=== PATIENT | male | born 1940 | race Caucasian/White ===

== ENCOUNTER 2018-09-03 08:00 | Inpatient (IN) | payer MEDICARE ==
[2018-09-10] MEDS ORDERED: Bupivacaine HCl 0.5%/Epinephrine 1:200,000/PF 30 ml Vial ONE (09:41)
[2018-09-10] MEDS ORDERED: Midazolam HCl 2 mg/2 ml Vial ONE (10:18)
[2018-09-10] MEDS ORDERED: Dexamethasone 4 mg/ml Vial ONE (10:18)
[2018-09-10] MEDS ORDERED: Fentanyl 100 MCG/2 ML VIAL ONE ×4 (10:18→15:14)
[2018-09-10] MEDS ORDERED: Glycopyrrolate 0.2 MG/ML 5 ML SYRINGE ONE (10:21)
[2018-09-10] MEDS ORDERED: Dexamethasone 20 MG/5 ML VIAL ONE (10:21)
[2018-09-10] MEDS ORDERED: Lidocaine 1% PF 5 ML VIAL ONE (10:21)
[2018-09-10] MEDS ORDERED: PROPOFOL 200 MG/20 ML VIAL ONE (10:21)
[2018-09-10] MEDS ORDERED: Ondansetron PF 4 MG/2 ML Vial ONE (10:21)
[2018-09-10] MEDS ORDERED: Bupivacaine/Epinephrine 0.25% 30 ML VIAL ONE (10:43)
[2018-09-10] MEDS ORDERED: cefOXitin 2 GM in Sodium Chloride 0.9% 100 ML IVPB SCH (10:45)
[2018-09-10] MEDS ORDERED: Ondansetron HCl/PF 4 MG/2 ML Vial IVP PRN (12:50)
[2018-09-10] MEDS ORDERED: Promethazine HCl 25 MG/ML VIAL SLOW IVP PRN (12:50)
[2018-09-10] MEDS ORDERED: Promethazine HCl 25 MG/ML VIAL IM PRN ×2 (12:50→18:38)
[2018-09-10] MEDS ORDERED: cefOXitin 2 GM VIAL ONE (13:07)
[2018-09-10] MEDS ORDERED: hydrALAZINE 20 MG/ML VIAL SLOW IVP PRN (18:38)
[2018-09-10] MEDS ORDERED: Ondansetron PF 4 MG/2 ML Vial IVP PRN (18:38)
[2018-09-10 18:52] VITALS: BMI 27.8
[2018-09-10] MEDS: Acetaminophen 1,000 MG in Premix Bag 1 BAG IVPB SCH (19:25)
[2018-09-10] MEDS: D5 1/2 NS w/20 mEq KCL 1,000 ML IV SCH (19:25)
[2018-09-10] MEDS: Famotidine 20 MG TAB PO SCH (21:32)
[2018-09-10] MEDS: cefOXitin 2 GM in Sodium Chloride 0.9% 100 ML IVPB SCH (21:33)
[2018-09-10] MEDS: Famotidine/PF 20 mg/2ml Vial SLOW IVP SCH (23:05)
[2018-09-11] MEDS: Acetaminophen 1,000 MG in Premix Bag 1 BAG IVPB SCH ×3 (01:33→14:27)
[2018-09-11 05:52] LABS: #Lymphocytes 0.8 thou/uL (1.20-3.40); #Neutrophils 9.2 thou/uL (1.40-6.50); %Basophils 0.1 % (0.0-1.0); %Lymphocytes 6.9 % (21.0-51.0); %Monocytes 9.1 % (0.0-10.0); Hemoglobin 14.6 g/dL (14.0-18.0); Mean Corpuscular Hemoglobin 29.4 pg (27.0-31.0); Mean Platelet Volume 7.6 fL (7.4-10.4); Platelet Count 229 thou/uL (130-400); Red Blood Cell (RBC) Count 4.96 mill/uL (4.70-6.10)
[2018-09-11] MEDS: D5 1/2 NS w/20 mEq KCL 1,000 ML IV SCH ×3 (05:56→18:57)
[2018-09-11] MEDS: cefOXitin 2 GM in Sodium Chloride 0.9% 100 ML IVPB SCH (05:56)
[2018-09-11 06:12] LABS: Anion Gap 11 mmol/L (10-20); BUN (Urea Nitrogen) 11 mg/dL (8.4-25.7); Calc. Creatinine Clearance 91 mL/min (70-130); Calcium 8.8 mg/dL (7.8-10.44); Carbon Dioxide 25 mmol/L (23-31); Chloride 105 mmol/L (98-107); Estimated GFR-MDRD 86; Glucose 163 mg/dL (83-110); Potassium 3.8 mmol/L (3.5-5.1); Sodium 137 mmol/L (136-145)
[2018-09-11] MEDS ORDERED: Fentanyl 100 MCG/2 ML VIAL SLOW IVP PRN (07:21)
--- NOTE | 2018-09-11 07:36 | OP ---
DATE OF SERVICE: 09/10/2018. PREOPERATIVE DIAGNOSIS: Unresectable polyp, sigmoid colon. POSTOPERATIVE DIAGNOSIS: Unresectable polyp, sigmoid colon. PROCEDURE PERFORMED: Laparoscopic converted to open, left colectomy, splenic flexure mobilization, l ow pelvic anastomosis. SURGEON: Dr. Sanches. ANESTHESIA: General. ESTIMATED BLOOD LOSS: 200 mL COMPLICATIONS: None. FINDINGS: No air leak test at the end of the procedure. TECHNIQUE: The patient was taken to the operating room and placed supine on the table. After genera l anesthetic was obtained, the Andrew was placed. The patient had been placed in lithotomy position. His abdomen was shaved, prepped, and draped in a sterile fashion. Left subcostal 5-mm Optiview troc ar was placed in the usual fashion. High flow pneumoperitoneum was obtained. Right lower quadrant 1 2 mm port, right of umbilicus 5 mm port, suprapubic 5 mm port were all placed under direct visualizat ion. The small bowel was taken out of the pelvis. The patient was placed in Trendelenburg position. The mesentery for the sigmoid colon is mobilized in a medial to lateral fashion. The polypoid area that is tattooed blue is in the distal descending colon, upper sigmoid colon. Dissection is taken d own on the medial aspect of the peritoneum all the way to the top of the rectum. Dissection was take n through the mesentery exposing the ureter. The ureter was found and excluded from the dissection. Inferior mesenteric artery was taken using the LigaSure. There was no bleeding. Laparoscopic stapl er was fired across the upper rectum. The colon was flipped up and the splenic flexure mobilization performed. In the upper descending colon, the patient had a significant amount of omental fat. 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 His distal transverse colon and splenic fl exure was then completely encased in fat and there was omentum that was fused to the spleen as well. There were no tissue planes to dissect. Decision was made to open. Midline incision is made. Book denice retractor was placed. Splenic flexure was then mobilized in the usual fashion using the impac t LigaSure. This was very difficult given the amount of fat and adhesions in the upper abdomen of un certain etiology; however, ultimately it was able to be done. The mesenteric attachments at the sple edinson flexure had to be taken. The distal transverse colon was viable and in this location, a colotomy was made and the anvil for the 31 EEA passed proximally, its sharp pin brought out on the antimesent hua surface of the colon. Just distal to this, the colon was stapled off. The colon was opened on the back table to reveal the large polyp to be in the specimen, sent to path for final diagnosis. Th e upper colon was able to be brought down in the pelvis under no tension. The base for the EEA is br ought out through the rectum below and connected to the anvil from above and the colon is tightened d own into the green zone and fired. There were 2 good rings of tissue. The abdomen is irrigated. Th e lower abdomen is filled with saline and an air insufflation test is performed with a rigid proctosc ope without leak. All instrument counts, needle counts, lap counts were correct. There was no bleed ing. Midline fascia was closed using #1 PDS from the top and the bottom and tied in the middle. Sub cutaneous tissues were irrigated using sterile solution. Midline incision was closed using 3-0 Vicry l, 4-0 Monocryl, and Dermabond. All the other incisions were closed using 4-0 Monocryl and Dermabond . The patient was en route to recovery in stable condition. All instrument counts, needle counts, l ap counts were correct.
[2018-09-11] MEDS: Finasteride 5 MG TAB PO SCH (08:57)
[2018-09-11] MEDS: Amlodipine 10 MG TAB PO SCH (08:58)
[2018-09-11] MEDS: Famotidine 20 MG TAB PO SCH ×2 (08:58→22:03)
[2018-09-11] MEDS: Fentanyl 100 MCG/2 ML VIAL SLOW IVP PRN ×5 (09:06→21:12)
[2018-09-11] MEDS: Famotidine/PF 20 mg/2ml Vial SLOW IVP SCH ×2 (09:13→22:03)
--- NOTE | 2018-09-11 09:47 | PRG ---
DATE OF SERVICE: 09/11/2018 Postop day #1. Mr. Denise is doing well. He is tolerating the clear liquids. He has pain. He took his fentanyl thi s morning. He is ambulatory. PHYSICAL EXAMINATION: VITAL SIGNS: He is afebrile. Vital signs are stable. ABDOMEN: Soft, minimally distended. Wounds are healing well. LABORATORY DATA: White blood cell count 11, hemoglobin is 14, creatinine 0.86. ASSESSMENT: Postop day #1 left colectomy necessitating open incision due to significant intra-abdomi nal adhesions. PLAN: We will recheck this afternoon. He does want to go home today. I think it would be better if he stayed until tomorrow.
[2018-09-11] MEDS ORDERED: HYDROcodone/Acetaminophen 7.5/325 mg Tablet PO PRN ×2 (11:22→11:23)
[2018-09-11] MEDS: Enoxaparin Sodium 40 MG/0.4 ML SYRINGE SC SCH (12:06)
[2018-09-12] MEDS: Fentanyl 100 MCG/2 ML VIAL SLOW IVP PRN (07:23)
[2018-09-12] MEDS: Famotidine 20 MG TAB PO SCH ×2 (08:23→20:41)
[2018-09-12] MEDS: Famotidine/PF 20 mg/2ml Vial SLOW IVP SCH (08:23)
[2018-09-12] MEDS: Amlodipine 10 MG TAB PO SCH (08:23)
[2018-09-12] MEDS: Finasteride 5 MG TAB PO SCH (08:23)
[2018-09-12] MEDS: Enoxaparin Sodium 40 MG/0.4 ML SYRINGE SC SCH (08:25)
[2018-09-12] MEDS ORDERED: Acetaminophen 500 MG TAB PO SCH (10:45)
[2018-09-12] MEDS ORDERED: traMADol HCl 50 MG TAB PO PRN (10:46)
[2018-09-12] MEDS ORDERED: traMADol HCl 50 MG TAB PO SCH (11:00)
[2018-09-12] MEDS: HYDROcodone/Acetaminophen 7.5/325 mg Tablet PO SCH ×2 (12:15→17:56)
[2018-09-12] MEDS: HYDROcodone/Acetaminophen 7.5/325 mg Tablet PO PRN ×2 (14:07→18:45)
--- NOTE | 2018-09-12 17:32 | PRG ---
DATE OF SERVICE: 09/12/2018 SUBJECTIVE: Mr. Denise is a 77-year-old man who is postoperative day #2, status post left colectomy w ith primary anastomosis. He reports adequate pain control today. He is passing a little flatus, but no bowel movement. He tolerates a liquid diet. He denies any nausea or vomiting. OBJECTIVE: VITAL SIGNS: This morning includes blood pressure 136/62, pulse 78, respiratory rate is 18, temperat ure 98.9 degrees Fahrenheit, oxygen saturation 98% on room air. HEENT: Pupils equal, round, and reactive to light and accommodation. HEART: Reveals regular rate and rhythm, no murmurs or gallops auscultated. CHEST: Clear to auscultation bilaterally. His breathing is regular and unlabored. ABDOMEN: Soft. Incision is intact, clean, and dry. He has no peritoneal signs on examination. He, however, complains of abdominal wall pain when he tries to get out of bed. Once he is up in the chilango ir, the pain eases. IMPRESSION: Postoperative day #2 status post left colectomy with primary anastomosis. The patient i s hemodynamically stable. PLAN: 1. Convert oral pain management to p.o. regimen. 2. Anticipate discharge in the morning if adequate pain control has been established. The patient c ontinues to tolerate diet with no sign of infection. The above findings and plan discussed with the patient who indicates understanding of the information given. I have answered his questions.
[2018-09-13] MEDS: HYDROcodone/Acetaminophen 7.5/325 mg Tablet PO SCH ×2 (00:09→06:42)
[2018-09-13] MEDS: HYDROcodone/Acetaminophen 7.5/325 mg Tablet PO PRN (00:55)
[2018-09-13] MEDS: Amlodipine 10 MG TAB PO SCH (08:16)
[2018-09-13] MEDS: Finasteride 5 MG TAB PO SCH (08:17)
[2018-09-13] MEDS: Famotidine 20 MG TAB PO SCH (08:17)
[2018-09-13] MEDS: Enoxaparin Sodium 40 MG/0.4 ML SYRINGE SC SCH (08:17)
[2018-09-13 08:35] VITALS: BP 135/63; TEMP 97.5
--- NOTE | 2018-09-13 15:30 | DIS ---
DATE OF ADMISSION: 09/10/2018 DATE OF DISCHARGE: 09/13/2018 ADMISSION DIAGNOSES: 1. Unresectable polyp. 2. Status post left colectomy, laparoscopic converted to open with primary anastomosis. DISCHARGE DIAGNOSES: 1. Unresectable polyp. 2. Status post left colectomy, laparoscopic converted to open with primary anastomosis. CONSULTANTS: None. PROCEDURES: On 09/10/2018, laparoscopic converted to open left colectomy, splenic flexure mobilizati on and low pelvic anastomosis with Dr. Sanches. HOSPITAL COURSE: Bernabe Denise is a 77-year-old male admitted to the hospital status post the above proc edures with Dr. Sanches on 09/10/2018. Postoperatively the patient did well, but there were some chilango llenges managing his postoperative pain. Multiple pain regimens were attempted and pain was adequate ly controlled via p.o. analgesics on 09/13/2018. Patient was ambulating and tolerating a full liquid diet on the day of discharge. DISCHARGE DISPOSITION: Home. DISCHARGE CONDITION: Good. PHYSICAL EXAMINATION: VITAL SIGNS: Temperature 97.5, pulse 90, respirations 18, O2 sat 94% on room air, blood pressure 135 /63. GENERAL: Elderly male in no acute distress, ambulating in room. PULMONARY: Normal work of breathing, symmetric rise. CARDIOVASCULAR: Regular rate and rhythm. GASTROINTESTINAL: Abdomen is soft, nontender, nondistended. Surgical sites are clean, dry, and inta ct. NEUROLOGIC: No focal deficit is noted. DISCHARGE INSTRUCTIONS: Discharge instructions were provided to the patient who vocalizes understand ing. Patient was educated on wound care, he should not lift anything greater than 20 pounds, he may wash his surgical sites, but should not scrub them or soak them. The patient should remain on full l iquid diet until cleared by Dr. Sanches. DISCHARGE MEDICATIONS: The patient may resume his home medications. He was provided a prescription for [place] 7.5/[address] Sanches had previously electronically transmitted prescription for the pa tient; however, the pharmacy that the electronic transmission went to was closed on the date of disch arge. Therefore, a paper prescription was provided. The previously selected pharmacy was called and a message was left asking them to disregard the electronically transmitted prescription. FOLLOWUP APPOINTMENTS: The patient to follow up with his primary care provider for chronic medical i llnesses and concerns. He should follow up with Dr. Sanches in approximately 2 weeks. This is merely a summary of the patient's hospitalization. For more in depth information, please see his medical record in its entirety.
== END 2018-09-13 10:55 | disposition home or self-care (01) | DRG 331 ==
LOC: SURG A 09-10 08:46
PROVIDERS: ADMIT Surgery; ATTEND Surgery
PROC: 0DTN0ZZ Resection of Sigmoid Colon, Open Approach (ICD-10-PCS; principal; 2018-09-10)
PROC: 07BC0ZX Excision of Pelvis Lymphatic, Open Approach, Diagnostic (ICD-10-PCS; 2018-09-10)
DX: D12.5 Benign neoplasm of sigmoid colon (principal); I10 Essential (primary) hypertension; E78.5 Hyperlipidemia, unspecified; N40.0 Benign prostatic hyperplasia without lower urinary tract symptoms; Z53.31 Laparoscopic surgical procedure converted to open procedure
CPT/HCPCS: 36415; 80048; 85025; 88309; J0131; J0694; J1100; J1650; J2250; J2405; J3010; J7050; S0028

== ENCOUNTER 2018-09-03 08:05 | Outpatient (CLI) | payer MEDICARE ==
[2018-09-03 09:32] LABS: #Basophils 0.1 thou/uL (0.0-0.2); #Eosinphils 0.1 thou/uL (0.0-0.7); #Lymphocytes 2.1 thou/uL (1.20-3.40); #Monocytes 0.8 thou/uL (0.11-0.59); #Neutrophils 5.1 thou/uL (1.40-6.50); %Basophils 1.6 % (0.0-1.0); %Eosinophils 0.8 % (0.0-10.0); %Lymphocytes 25.9 % (21.0-51.0); %Monocytes 9.6 % (0.0-10.0); %Neutrophils 62.2 % (42.0-75.0); Hemoglobin 16.7 g/dL (14.0-18.0); Mean Corpuscular HGB CONC 32.6 g/dL (32.0-36.0); Mean Corpuscular Hemoglobin 29.7 pg (27.0-31.0); Mean Platelet Volume 7.1 fL (7.4-10.4); Platelet Count 261 thou/uL (130-400); RBC Distribution Width 12.1 % (11.5-14.5); Red Blood Cell (RBC) Count 5.61 mill/uL (4.70-6.10); White Blood Cell (WBC) Count 8.2 thou/uL (4.8-10.8)
[2018-09-03 09:39] LABS: Hemoglobin A1c 5.3 % (4.0-6.0)
[2018-09-03 09:52] LABS: Anion Gap 16 mmol/L (10-20); BUN (Urea Nitrogen) 16 mg/dL (8.4-25.7); Calc. Creatinine Clearance 0 mL/min (70-130); Calcium 9.9 mg/dL (7.8-10.44); Carbon Dioxide 22 mmol/L (23-31); Chloride 107 mmol/L (98-107); Estimated GFR-MDRD 78; Glucose 121 mg/dL (83-110); Potassium 4.1 mmol/L (3.5-5.1); Sodium 141 mmol/L (136-145)
== END 2018-09-03 08:06 | disposition home or self-care (01) ==
LOC: LABBT 08:05
PROVIDERS: ATTEND Surgery
DX: Z01.812 Encounter for preprocedural laboratory examination (principal); K63.9 Disease of intestine, unspecified
CPT/HCPCS: 80048; 83036; 85025

== ENCOUNTER 2020-07-18 07:13 | Outpatient (CLI) | payer MEDICARE, OTHER ==
[2020-07-18 16:28] LABS: #Eosinphils 0.1 thou/uL (0.0-0.7); #Lymphocytes 2.3 thou/uL (1.20-3.40); #Monocytes 0.7 thou/uL (0.11-0.59); #Neutrophils 3.7 thou/uL (1.40-6.50); %Basophils 0.5 % (0.0-1.0); %Lymphocytes 33.9 % (21.0-51.0); %Monocytes 10.2 % (0.0-10.0); %Neutrophils 54.4 % (42.0-75.0); Hemoglobin 15.6 g/dL (14.0-18.0); Mean Corpuscular HGB CONC 32.6 g/dL (32.0-36.0); Mean Corpuscular Hemoglobin 30.6 pg (27.0-31.0); Mean Corpuscular Volume 94.1 fL (78.0-98.0); Platelet Count 212 thou/uL (130-400); White Blood Cell (WBC) Count 6.9 thou/uL (4.8-10.8)
[2020-07-18 16:33] LABS: Anion Gap 14 mmol/L (10-20); BUN (Urea Nitrogen) 14 mg/dL (8.4-25.7); Calc. Creatinine Clearance 0 mL/min (70-130); Calcium 9.3 mg/dL (7.8-10.44); Carbon Dioxide 28 mmol/L (23-31); Chloride 103 mmol/L (98-107); Estimated GFR-MDRD 83; Glucose 100 mg/dL (83-110); Sodium 141 mmol/L (136-145)
--- NOTE | 2020-07-19 11:01 | EKG ---
Test Reason : PREOP Blood Pressure : / mmHG Vent. Rate : 080 BPM Atrial Rate : 080 BPM P-R Int : 160 ms QRS Dur : 088 ms QT Int : 382 ms P-R-T Axes : 062 073 047 degrees QTc Int : 440 ms Normal sinus rhythm Nonspecific ST abnormality Abnormal ECG No previous ECGs available Confirmed by MASON VITALE M.D. ([id number] on 07/19/2020 11:00:49 AM Referred By: Caterina MCMULLEN Confirmed By:MASON VITALE M.D.
[2020-07-19 12:33] LABS: SARS-CoV-2 MS2 Positive; SARS-CoV-2 N Gene Negative; SARS-CoV-2 S Gene Negative; SARS-CoV-2 by NAA Not Detected (NotDetected); SARS-CoV-2 orf1ab Negative
== END 2020-07-18 07:14 | disposition home or self-care (01) ==
LOC: LABBT 07:13
PROVIDERS: ATTEND Surgery
DX: Z01.818 Encounter for other preprocedural examination (principal); K43.2 Incisional hernia without obstruction or gangrene; Z20.828 Contact with and (suspected) exposure to other viral communicable diseases
CPT/HCPCS: 80048; 85025; 93005; U0003; 87635; 93010

== ENCOUNTER 2020-07-21 05:46 | Day surgery (SDC) | payer MEDICARE ==
[2020-07-19 12:20] VITALS: BMI 25.0
[2020-07-21] MEDS ORDERED: Lidocaine 1% w/Epinephrine 1:100K 20 ML VIAL ONE (06:37)
[2020-07-21] MEDS ORDERED: Bupivacaine 0.25% HCL 30 ML VIAL ONE (06:37)
[2020-07-21] MEDS ORDERED: Fentanyl 100 MCG/2 ML VIAL ONE (07:01)
--- NOTE | 2020-07-21 09:12 | OP ---
DATE OF PROCEDURE: 07/21/2020 PREOPERATIVE DIAGNOSIS: Incisional hernia. POSTOPERATIVE DIAGNOSIS: Incisional hernia. PROCEDURE PERFORMED: Da Beverley laparoscopic incisional hernia repair with mesh, [address] ANESTHESIA: General. ESTIMATED BLOOD LOSS: Minimal. COMPLICATIONS: None. SPECIMENS: None. FINDINGS: Incisional hernia. DESCRIPTION OF PROCEDURE: The patient was taken to the operating room and laid supine on the operating room table. After general anesthetic was obtained, a Andrew was placed and the abdomen was shaved, prepped, and draped in a sterile fashion. Left subcostal 5-mm Optiview trocar placed in the usual fashion without injury and high-flow pneumoperitoneum was obtained. Left and right upper abdominal 8-mm robot ports were placed. A 5-mm subxiphoid incision was switched out to an 11-mm balloon. All ports were docked to the robot. There were multiple posterior abdominal wall adhesions, that were taken down carefully using sharp dissection. In one area, the adhesions were so close to the posterior abdominal wall. Small deserosalization was made in the intestine. A 2-0 Vicryl was used to oversew the serosa in this area, it was not a full-thickness injury. There were no other injuries during this portion of the procedure. The peritoneum was taken down, exposing the posterior fascia. There was a large defect in the area of the umbilicus. The defect was closed primarily using #1 V-Loc. The [address] mesh was brought in the sterile field. The exposed mesh portion placed up against the posterior abdominal wall, held in place using the V-Loc needle. The nonadherent part was put left on it down against the abdominal viscera. The mesh was sewn to the posterior fascia using a 2-0 V-Loc all the way around. All needles were removed from the abdomen and accounted for. All port sites were infiltrated using local anesthetic and removed under direct visualization without bleeding. Pneumoperitoneum was let down. PDS was used to close the fascial defect at the subxiphoid incision. All incisions were irrigated and closed using 4-0 Monocryl and Dermabond. The patient was sent to Recovery in stable condition. All instrument counts, needle counts, and lap counts were correct. Job ID: [id number]
[2020-07-21] MEDS ORDERED: HYDROcodone/Acetaminophen 5/325 mg Tablet ONE ×2 (10:01→10:37)
[2020-07-21] MEDS ORDERED: Rocuronium Bromide 10 MG/ML (10ML VIAL) ONE (10:57)
[2020-07-21] MEDS ORDERED: Glycopyrrolate 0.2 MG/ML 5 ML SYRINGE ONE (10:57)
[2020-07-21] MEDS ORDERED: Lidocaine 1% PF 5 ML VIAL ONE (10:57)
[2020-07-21] MEDS ORDERED: Ondansetron PF 4 MG/2 ML Vial ONE (10:57)
[2020-07-21] MEDS ORDERED: Ketorolac Tromethamine 30 MG/ML VIAL ONE (10:57)
[2020-07-21] MEDS ORDERED: PROPOFOL 200 MG/20 ML VIAL ONE (10:57)
[2020-07-21] MEDS ORDERED: Dexamethasone 20 MG/5 ML VIAL ONE (10:57)
== END 2020-07-21 11:00 | disposition home or self-care (01) ==
LOC: SDC 05:46
PROVIDERS: ATTEND Surgery
PROC: 0WUF4JZ Supplement Abdominal Wall with Synthetic Substitute, Percutaneous Endoscopic Approach (ICD-10-PCS; principal; 2020-07-21)
DX: K43.2 Incisional hernia without obstruction or gangrene (principal); I10 Essential (primary) hypertension; N40.0 Benign prostatic hyperplasia without lower urinary tract symptoms; E78.5 Hyperlipidemia, unspecified; Z79.899 Other long term (current) drug therapy
CPT/HCPCS: 49654; C1781; J0690; J1100; J1885; J2405; J2704; J3010; S0020

== ENCOUNTER 2020-07-22 16:15 | Emergency (ER) | payer MEDICARE | END 2020-07-22 16:55 | disposition home or self-care (01) | LOC: ER/OP 16:15 | DX: R33.9 Retention of urine, unspecified (principal) | CPT/HCPCS: 51102; 99281 ==

== ENCOUNTER 2020-07-23 12:42 | Emergency (ER) | payer MEDICARE ==
[2020-07-23 14:01] LABS: Bilirubin Negative (Negative); Blood, Urine 3+ (Negative); Clarity Clear (Clear); Glucose, Urine (Dipstick) Normal (Negative); Ketone, Urine Negative (Negative); Leukocyte 25 Leu/uL (Negative); Nitrite Negative (Negative); Protein, Urine (Dipstick) Negative (Neg-Trace); Urobilinogen Normal mg/dL (Less than 2)
[2020-07-23 14:03] LABS: Bacteria/HPF 1+ HPF (None Seen); Squamous Epithelial 0-3 HPF (0-3)
== END 2020-07-23 14:19 | disposition home or self-care (01) ==
LOC: ER/OP 12:42
DX: N40.1 Benign prostatic hyperplasia with lower urinary tract symptoms (principal); R33.8 Other retention of urine; E78.5 Hyperlipidemia, unspecified; E78.00 Pure hypercholesterolemia, unspecified; I10 Essential (primary) hypertension
CPT/HCPCS: 51102; 81003; 81015; 87086; 99281

== ENCOUNTER → 2020-07-28 | Day surgery (SDC) | payer MEDICARE, OTHER ==
[2020-07-28 17:54] LABS: #Basophils 0.1 thou/uL (0.0-0.2); #Eosinphils 0.4 thou/uL (0.0-0.7); #Lymphocytes 2.1 thou/uL (1.20-3.40); #Monocytes 0.8 thou/uL (0.11-0.59); #Neutrophils 5.5 thou/uL (1.40-6.50); %Basophils 0.7 % (0.0-1.0); %Eosinophils 4.4 % (0.0-10.0); %Lymphocytes 23.5 % (21.0-51.0); %Monocytes 8.8 % (0.0-10.0); %Neutrophils 62.6 % (42.0-75.0); Hemoglobin 14.9 g/dL (14.0-18.0); Mean Corpuscular HGB CONC 34.3 g/dL (32.0-36.0); Mean Corpuscular Hemoglobin 31.6 pg (27.0-31.0); Mean Corpuscular Volume 92.2 fL (78.0-98.0); Mean Platelet Volume 7.8 fL (7.4-10.4); Platelet Count 266 thou/uL (130-400); RBC Distribution Width 11.8 % (11.5-14.5); Red Blood Cell (RBC) Count 4.72 mill/uL (4.70-6.10); White Blood Cell (WBC) Count 8.8 thou/uL (4.8-10.8)
[2020-07-28 17:56] LABS: Bacteria/HPF None Seen HPF (None Seen); Bilirubin Negative (Negative); Blood, Urine Trace (Negative); Clarity Clear (Clear); Glucose, Urine (Dipstick) Normal (Negative); Ketone, Urine Negative (Negative); Leukocyte Negative Leu/uL (Negative); Nitrite Negative (Negative); Protein, Urine (Dipstick) Negative (Neg-Trace); RBC/HPF 0-3 HPF (0-3); Specific Gravity, Urine 1.009 (1.002-1.036); Squamous Epithelial 0-3 HPF (0-3); Urobilinogen Normal mg/dL (Less than 2); WBC/HPF 0-3 HPF (0-3); pH, Urine 6.5 (5.0-9.0)
[2020-07-28 18:06] LABS: Anion Gap 14 mmol/L (10-20); BUN (Urea Nitrogen) 15 mg/dL (8.4-25.7); Calc. Creatinine Clearance 0 mL/min (70-130); Calcium 9.2 mg/dL (7.8-10.44); Carbon Dioxide 26 mmol/L (23-31); Chloride 102 mmol/L (98-107); Estimated GFR-MDRD 88; Glucose 111 mg/dL (83-110); Potassium 3.2 mmol/L (3.5-5.1); Sodium 139 mmol/L (136-145)
== END ==
LOC: EDSTATUS 16:36 → ER/OP 16:38 → SDC 16:38
PROVIDERS: ATTEND Surgery
DX: Z46.6 Encounter for fitting and adjustment of urinary device (principal)
CPT/HCPCS: 36415; 80048; 81003; 81015; 85025; 87086

== ENCOUNTER 2020-08-06 11:30 | Emergency (ER) | payer MEDICARE, OTHER ==
[2020-08-06 12:16] LABS: Bilirubin Negative (Negative); Blood, Urine Large (Negative); Glucose, Urine (Dipstick) Negative (Negative); Ketone, Urine Negative (Negative); Leukocyte Trace (Negative); Nitrite Positive (Negative); Protein, Urine (Dipstick) 30 mg/dL (Neg-Trace); Specific Gravity, Urine 1.015 (1.005-1.030); Urobilinogen 0.2 mg/dL (Less than 2)
[2020-08-06 12:17] LABS: Clarity Cloudy (Clear)
[2020-08-06 12:28] LABS: RBC/HPF Greater than 50 HPF (0-3)
[2020-08-06 12:29] LABS: Bacteria/HPF 2+ HPF (None Seen); Squamous Epithelial None Seen HPF (0-3)
== END 2020-08-06 12:52 | disposition home or self-care (01) ==
LOC: ERS 11:30
DX: N39.0 Urinary tract infection, site not specified (principal); T83.098A Other mechanical complication of other urinary catheter, initial encounter; E78.5 Hyperlipidemia, unspecified; E78.00 Pure hypercholesterolemia, unspecified; I10 Essential (primary) hypertension; Z87.891 Personal history of nicotine dependence
CPT/HCPCS: 81003; 81015; 87077; 87086; 87186

== ENCOUNTER 2020-08-24 08:48 | Outpatient (CLI) | payer MEDICARE, OTHER ==
[2020-08-24 17:53] LABS: Hemoglobin 15.7 g/dL (14.0-18.0); Mean Corpuscular HGB CONC 33.6 g/dL (32.0-36.0); Mean Corpuscular Hemoglobin 31.1 pg (27.0-31.0); Mean Corpuscular Volume 92.6 fL (78.0-98.0); Mean Platelet Volume 7.9 fL (7.4-10.4); Platelet Count 246 thou/uL (130-400); RBC Distribution Width 11.9 % (11.5-14.5); Red Blood Cell (RBC) Count 5.06 mill/uL (4.70-6.10); White Blood Cell (WBC) Count 7.8 thou/uL (4.8-10.8)
[2020-08-24 18:09] LABS: INR-International Normal Ratio 0.9; PTT 27.9 sec (22.9-36.1); Prothrombin Time 12.1 sec (12.0-14.7)
[2020-08-24 18:47] LABS: Anion Gap 14 mmol/L (10-20); BUN (Urea Nitrogen) 20 mg/dL (8.4-25.7); Calc. Creatinine Clearance 0 mL/min (70-130); Calcium 9.5 mg/dL (7.8-10.44); Carbon Dioxide 28 mmol/L (23-31); Chloride 102 mmol/L (98-107); Estimated GFR-MDRD 69; Glucose 154 mg/dL (83-110); Potassium 3.7 mmol/L (3.5-5.1); Sodium 140 mmol/L (136-145)
[2020-08-25 11:00] LABS: SARS-CoV-2 MS2 Positive; SARS-CoV-2 N Gene Negative; SARS-CoV-2 S Gene Negative; SARS-CoV-2 by NAA Not Detected (NotDetected); SARS-CoV-2 orf1ab Negative
--- NOTE | 2020-08-27 12:02 | EKG ---
Test Reason : Blood Pressure : / mmHG Vent. Rate : 085 BPM Atrial Rate : 085 BPM P-R Int : 160 ms QRS Dur : 086 ms QT Int : 364 ms P-R-T Axes : 052 063 027 degrees QTc Int : 433 ms Normal sinus rhythm Nonspecific ST abnormality Abnormal ECG When compared with ECG of 18-JUL-2020 12:54, No significant change was found Confirmed by SHAKILA BEAR ([id number]) on 08/27/2020 12:01:50 PM Referred By: ROSITA Confirmed By:SHAKILA BEAR
[2020-08-28 14:14] VITALS: BMI 25.0
== END 2020-08-24 08:49 | disposition home or self-care (01) ==
LOC: LABBT 08:48
PROVIDERS: ATTEND Urology
DX: Z01.818 Encounter for other preprocedural examination (principal); Z20.828 Contact with and (suspected) exposure to other viral communicable diseases; N40.1 Benign prostatic hyperplasia with lower urinary tract symptoms
CPT/HCPCS: 80048; 85027; 85610; 85730; 87086; 93005; U0003; 87077; 87186; 87635; 93010

== ENCOUNTER 2020-08-29 06:24 | Observation (INO) | payer MEDICARE ==
[2020-08-29] MEDS ORDERED: Levofloxacin 500 mg/D5W 100 ml Premix Bag ONE (07:54)
[2020-08-29] MEDS ORDERED: Fentanyl 100 MCG/2 ML VIAL ONE (08:16)
[2020-08-29] MEDS ORDERED: Midazolam HCl 2 mg/2 ml Vial ONE (08:16)
[2020-08-29] MEDS ORDERED: Ondansetron HCl/PF 4 MG/2 ML Vial IVP PRN (10:41)
--- NOTE | 2020-08-29 10:51 | OP ---
DATE OF PROCEDURE: 08/29/2020 PREOPERATIVE DIAGNOSES: Enlarged prostate with lower urinary tract symptoms, urinary retention. POSTOPERATIVE DIAGNOSES: Enlarged prostate with lower urinary tract symptoms, urinary retention. PROCEDURES PERFORMED: Transurethral resection of prostate, extensive surgical procedure requiring 2 hours of operating time. ANESTHESIA: General. COMPLICATIONS: None. ESTIMATED BLOOD LOSS: Minimal. SPECIMEN: Prostate chips. DESCRIPTION OF PROCEDURE: After informed consent, the patient was taken to the operating room, transferred to the table on his own power. Anesthesia was established. A time-out was performed showing the correct patient, site, and procedure. Preoperative antibiotics were administered. He was prepped and draped in the lithotomy position. I began by performing a digital rectal exam, which appeared to show greater than 80 to 100 g prostate. I then inserted the rigid resectoscope through the urethra noting a normal course and caliber of the urethra down to the prostate noting massive lateral lobes with extensive anterior to posterior dimension. He had about a 6 cm channel and an extremely large median lobe protruding well into the bladder occupying the entirety of the bladder neck. The bladder was systematically examined noting moderate trabeculation with multiple diverticula. No mucosal abnormalities were noted. I began by resecting the median lobe from the bladder neck back to the mid prostate. Once this was achieved, I resected from the bladder neck back to the verumontanum in midline. I then resected the left lobe, which had to be done in several stages and finally the right lobe. At the end, anterior obstructing tissue was removed. I then switched to the PlasmaButton to complete resection and ensure adequate hemostasis. Total resection time was 2 hours. The [employer] evacuator was then used to retrieve all prostate chips, which were passed off the specimen. The bladder was drained and the prostatic fossa reexamined noting no active bleeding. The scope was withdrawn and a 22-Maltese 3-way catheter placed with 50 mL instilled in the balloon. Continuous irrigation was connected, which was running clear at the end of the case. He was then brought down from lithotomy, transferred back to his hospital bed, and taken to PACU in stable condition, where he will be admitted overnight. Job ID: [id number]
[2020-08-29] MEDS ORDERED: PROPOFOL 200 MG/20 ML VIAL ONE (11:34)
[2020-08-29] MEDS ORDERED: Dexamethasone 20 MG/5 ML VIAL ONE (11:34)
[2020-08-29] MEDS ORDERED: PHENYLEPHRINE-NS 100 MCG/ML 10 ML SYRINGE ONE (11:34)
[2020-08-29] MEDS ORDERED: Ondansetron PF 4 MG/2 ML Vial ONE (11:34)
[2020-08-29] MEDS ORDERED: Rocuronium Bromide 10 MG/ML (10ML VIAL) ONE (11:34)
[2020-08-29] MEDS ORDERED: Glycopyrrolate 0.2 MG/ML 5 ML SYRINGE ONE (11:34)
[2020-08-29] MEDS ORDERED: Esmolol 100 MG/10 ML VIAL ONE (11:34)
[2020-08-29 12:10] VITALS: BMI 25.0
[2020-08-29] MEDS ORDERED: Ketorolac Tromethamine 30 MG/ML VIAL IVP PRN (12:31)
[2020-08-29] MEDS ORDERED: Hyoscyamine Sulfate SL 0.125 mg Tablet SL PRN (12:31)
[2020-08-29] MEDS ORDERED: diphenhydrAMINE 50 MG/ML VIAL IVP PRN (12:31)
[2020-08-29] MEDS ORDERED: Zolpidem Tartrate 5 MG TAB PO PRN (12:31)
[2020-08-29] MEDS ORDERED: HYDROcodone/Acetaminophen 5/325 mg Tablet PO PRN (12:31)
[2020-08-29] MEDS ORDERED: Hydrochlorothiazide 25 MG TAB PO SCH (12:45)
[2020-08-29] MEDS ORDERED: Lisinopril 20 MG TAB PO SCH (12:45)
[2020-08-29] MEDS ORDERED: Amlodipine 10 MG TAB PO SCH (12:45)
[2020-08-29] MEDS ORDERED: Finasteride 5 MG TAB PO SCH (12:45)
[2020-08-29] MEDS ORDERED: Docusate 100 MG CAP PO SCH (12:45)
[2020-08-29] MEDS: Sodium Chloride 0.9% 1,000 ML IV SCH ×2 (12:56→20:02)
[2020-08-29] MEDS: Docusate 100 MG CAP PO SCH (19:59)
[2020-08-29] MEDS ORDERED: Atorvastatin Calcium 40 MG TAB PO SCH (21:00)
[2020-08-30 07:54] VITALS: TEMP 97.7
[2020-08-30] MEDS ORDERED: Amlodipine 10 MG TAB PO SCH (09:00)
[2020-08-30] MEDS ORDERED: Lisinopril 20 MG TAB PO SCH (09:00)
[2020-08-30] MEDS ORDERED: Hydrochlorothiazide 25 MG TAB PO SCH (09:00)
[2020-08-30] MEDS ORDERED: Finasteride 5 MG TAB PO SCH (09:00)
[2020-08-30] MEDS ORDERED: FLU VACC QS2020-21(65YR UP)/PF 240 MCG/0.7 ML SYRINGE IM ONE (09:00)
[2020-08-30] MEDS: Docusate 100 MG CAP PO SCH (10:05)
[2020-08-30 10:19] VITALS: BP 137/75
[2020-08-30] MEDS: Sodium Chloride 0.9% 1,000 ML IV SCH (11:11)
--- NOTE | 2020-08-30 13:49 | DIS ---
DATE OF ADMISSION: 08/29/2020 DATE OF DISCHARGE: 08/30/2020 DISCHARGE DIAGNOSES: Urinary retention, enlarged prostate with lower urinary tract symptoms. PROCEDURE PERFORMED: Bipolar transurethral resection. HOSPITAL COURSE: The patient underwent an extensive bipolar transurethral resection of the prostate, lasting a total of 2 hours. There were no surgical complications. He was managed with CBI overnight afterwards with urine remaining clear to light pink on a slow drip. The following morning, his CBI was disconnected and a leg bag applied. He was tolerating diet, having no discomfort, and ready for discharge home at that point. DISCHARGE MEDICATIONS: Resume all home medications. New medications include Bactrim, tramadol, oxybutynin, docusate. FOLLOWUP PLAN: Next Friday for void trial. Job ID: [id number]
== END 2020-08-30 11:11 | disposition home or self-care (01) ==
LOC: SDC 06:24 → SURG A 08:31 → SDC 12:31 → SURG A 12:31
PROVIDERS: ADMIT Urology; ATTEND Urology
PROC: 0VT08ZZ Resection of Prostate, Via Natural or Artificial Opening Endoscopic (ICD-10-PCS; principal; 2020-08-29)
DX: N40.1 Benign prostatic hyperplasia with lower urinary tract symptoms (principal); R33.8 Other retention of urine; N32.3 Diverticulum of bladder; I10 Essential (primary) hypertension; E78.5 Hyperlipidemia, unspecified; Z79.899 Other long term (current) drug therapy; Z87.891 Personal history of nicotine dependence
CPT/HCPCS: 88305; 96361; 96374; G0378; J1100; J1885; J1956; J2250; J2405; J2704; J3010

== ENCOUNTER 2021-03-22 04:38 | Inpatient (IN) | payer MEDICARE ==
[2021-03-22 04:55] LABS: #Basophils 0.1 thou/uL (0.0-0.2); #Eosinphils 0.2 thou/uL (0.0-0.7); #Lymphocytes 4.5 thou/uL (1.20-3.40); #Monocytes 0.9 thou/uL (0.11-0.59); #Neutrophils 5.4 thou/uL (1.40-6.50); %Basophils 0.8 % (0.0-1.0); %Lymphocytes 40.5 % (21.0-51.0); %Monocytes 7.9 % (0.0-10.0); %Neutrophils 48.8 % (42.0-75.0); Hemoglobin 16.3 g/dL (14.0-18.0); Mean Corpuscular HGB CONC 32.9 g/dL (32.0-36.0); Mean Corpuscular Hemoglobin 29.9 pg (27.0-31.0); Mean Corpuscular Volume 90.8 fL (78.0-98.0); Mean Platelet Volume 7.6 fL (7.4-10.4); Platelet Count 268 thou/uL (130-400); RBC Distribution Width 12.1 % (11.5-14.5); Red Blood Cell (RBC) Count 5.45 mill/uL (4.70-6.10); White Blood Cell (WBC) Count 11.1 thou/uL (4.8-10.8)
[2021-03-22] MEDS ORDERED: Lidocaine 1% (PF) 30 ML VIAL ONE (05:03)
[2021-03-22 05:21] LABS: ALT (SGPT) 18 U/L (8-55); AST (SGOT) 19 U/L (5-34); Albumin 4.2 g/dL (3.4-4.8); Alkaline Phosphatase 69 U/L (40-110); Anion Gap 17 mmol/L (10-20); BUN (Urea Nitrogen) 13 mg/dL (8.4-25.7); Calc. Creatinine Clearance 0 mL/min (70-130); Calcium 9.7 mg/dL (7.8-10.44); Carbon Dioxide 20 mmol/L (23-31); Chloride 108 mmol/L (98-107); Globulin 2.8 g/dL (2.4-3.5); Glucose 142 mg/dL (83-110); Potassium 3.7 mmol/L (3.5-5.1); Sodium 141 mmol/L (136-145)
[2021-03-22] MEDS ORDERED: Midazolam HCl 2 mg/2 ml Vial ONE (05:30)
[2021-03-22] MEDS ORDERED: Ondansetron PF 4 MG/2 ML Vial ONE (05:37)
[2021-03-22] MEDS ORDERED: Atropine Sulfate 1 mg/10 ml Syringe ONE (05:37)
[2021-03-22] MEDS ORDERED: Heparin 10,000 UNITS/ 10 ML VIAL ONE (05:37)
[2021-03-22 05:44] LABS: CKMB 2.6 ng/mL (0-6.6)
[2021-03-22] MEDS ORDERED: TICAGRELOR 90 MG TABLET ONE (06:05)
[2021-03-22] MEDS ORDERED: Zolpidem Tartrate 5 MG TAB PO PRN (06:48)
[2021-03-22] MEDS ORDERED: Milk Of Magnesia 30 ML UDCUP PO PRN (06:48)
[2021-03-22] MEDS ORDERED: Mag-Al 1200 mg/1200 mg/30 ML UDCUP PO PRN (06:48)
[2021-03-22] MEDS ORDERED: Acetaminophen/Codeine 30-300mg Tablet PO PRN (06:48)
[2021-03-22 07:31] VITALS: BMI 25.1
[2021-03-22] MEDS: TICAGRELOR 90 MG TABLET PO SCH ×2 (09:09→22:02)
[2021-03-22] MEDS: Lisinopril 5 MG TAB PO SCH (09:09)
[2021-03-22] MEDS: Metoprolol Tartrate 25 MG TAB PO SCH ×2 (09:09→22:02)
[2021-03-22 10:20] LABS: Troponin I 0.842 ng/mL (< 0.028)
[2021-03-22] MEDS ORDERED: Sodium Chloride 0.9% 1,000 ML BAG ONE (10:55)
[2021-03-22] MEDS ORDERED: Iopamidol 370 76% 50 ML VIAL FS ONE (12:28)
[2021-03-22] MEDS ORDERED: Iopamidol 370 76% 100 ML VIAL ONE (12:28)
[2021-03-22 14:35] LABS: Troponin I 1.752 ng/mL (< 0.028)
[2021-03-22] MEDS ORDERED: Enoxaparin Sodium 60 MG/0.6 ML SYRINGE SC SCH (21:00)
[2021-03-22] MEDS ORDERED: Atorvastatin Calcium 40 MG TAB PO SCH (21:00)
[2021-03-23 05:00] LABS: #Basophils 0.1 thou/uL (0.0-0.2); #Eosinphils 0.3 thou/uL (0.0-0.7); #Lymphocytes 2.6 thou/uL (1.20-3.40); %Basophils 0.7 % (0.0-1.0); %Eosinophils 3.8 % (0.0-10.0); %Lymphocytes 29.1 % (21.0-51.0); %Neutrophils 55.5 % (42.0-75.0); Hemoglobin 14.7 g/dL (14.0-18.0); Mean Corpuscular HGB CONC 32.6 g/dL (32.0-36.0); Mean Corpuscular Hemoglobin 30.4 pg (27.0-31.0); Mean Corpuscular Volume 93.1 fL (78.0-98.0); Mean Platelet Volume 7.9 fL (7.4-10.4); Platelet Count 216 thou/uL (130-400); RBC Distribution Width 12.2 % (11.5-14.5); Red Blood Cell (RBC) Count 4.84 mill/uL (4.70-6.10)
[2021-03-23 05:20] LABS: ALT (SGPT) 14 U/L (8-55); AST (SGOT) 18 U/L (5-34); Albumin 3.5 g/dL (3.4-4.8); Alkaline Phosphatase 59 U/L (40-110); Anion Gap 10 mmol/L (10-20); BUN (Urea Nitrogen) 12 mg/dL (8.4-25.7); Bilirubin, Total 1.1 mg/dL (0.2-1.2); Calc. Creatinine Clearance 84 mL/min (70-130); Calcium 9.2 mg/dL (7.8-10.44); Carbon Dioxide 25 mmol/L (23-31); Cardiac Risk 3.2 (Less than 4.5); Chloride 107 mmol/L (98-107); Cholesterol 156 mg/dl (< 200 Desired); Globulin 2.2 g/dL (2.4-3.5); Glucose 104 mg/dL (83-110); HDL Cholesterol 49 mg/dL (>60 Neg Risk); LDL Cholesterol, Calculated 83 mg/dL; Potassium 3.4 mmol/L (3.5-5.1); Protein, Total 5.7 g/dL (5.8-8.1); Sodium 139 mmol/L (136-145); Triglycerides 119 mg/dL (Less than 150)
[2021-03-23] MEDS: Metoprolol Tartrate 25 MG TAB PO SCH (08:27)
[2021-03-23] MEDS: Lisinopril 5 MG TAB PO SCH (08:27)
[2021-03-23] MEDS: TICAGRELOR 90 MG TABLET PO SCH (08:27)
[2021-03-23] MEDS ORDERED: Aspirin 81 mg Enteric Coated Tablet PO SCH (09:00)
[2021-03-23] MEDS ORDERED: Atorvastatin Calcium 40 MG TAB PO SCH ×2 (12:01→21:00)
[2021-03-23 16:07] VITALS: BP 119/63; TEMP 98.2
== END 2021-03-23 15:45 | disposition home or self-care (01) | DRG 247 ==
LOC: ERS 04:38 → CCL 06:31 → CCU 07:07 → 2NO 15:13
PROVIDERS: ADMIT Internal Medicine Cardiovascular Disease; ATTEND Internal Medicine Cardiovascular Disease
PROC: 027034Z Dilation of Coronary Artery, One Artery with Drug-eluting Intraluminal Device, Percutaneous Approach (ICD-10-PCS; principal; 2021-03-22)
PROC: 02C03ZZ Extirpation of Matter from Coronary Artery, One Artery, Percutaneous Approach (ICD-10-PCS; 2021-03-22)
PROC: 4A023N7 Measurement of Cardiac Sampling and Pressure, Left Heart, Percutaneous Approach (ICD-10-PCS; 2021-03-22)
PROC: B2111ZZ Fluoroscopy of Multiple Coronary Arteries using Low Osmolar Contrast (ICD-10-PCS; 2021-03-22)
PROC: B2151ZZ Fluoroscopy of Left Heart using Low Osmolar Contrast (ICD-10-PCS; 2021-03-22)
DX: I21.19 ST elevation (STEMI) myocardial infarction involving other coronary artery of inferior wall (principal); I10 Essential (primary) hypertension; E78.5 Hyperlipidemia, unspecified; E78.00 Pure hypercholesterolemia, unspecified; I25.10 Atherosclerotic heart disease of native coronary artery without angina pectoris; Z86.010 Personal history of colon polyps; Z87.891 Personal history of nicotine dependence; Z79.899 Other long term (current) drug therapy
CPT/HCPCS: 36415; 71045; 80053; 80061; 82553; 83880; 84484; 85025; 85347; 92941; 93005; 93010; 93798; 96374; 99152; 99153; C9606; J0461; J1644; J2001; J2250; J2405; J7050; Q9967

== ENCOUNTER 2022-03-21 09:44 | Observation (INO) | payer MEDICARE, OTHER ==
[2022-03-21 10:36] LABS: Hemoglobin 6.3 g/dL (14.0-18.0); Mean Corpuscular HGB CONC 28.9 g/dL (32.0-36.0); Mean Corpuscular Hemoglobin 18.6 pg (27.0-31.0); Mean Corpuscular Volume 64.4 fL (78.0-98.0); Mean Platelet Volume 10.4 fL (7.4-10.4); Platelet Count 318 thou/uL (130-400); RBC Distribution Width 17.2 % (11.5-14.5); Red Blood Cell (RBC) Count 3.37 mill/uL (4.70-6.10)
[2022-03-21 10:38] LABS: PTT 27.9 sec (22.9-36.1); Prothrombin Time 13.3 sec (12.0-14.7)
[2022-03-21 10:41] LABS: ALT (SGPT) 11 U/L (8-55); AST (SGOT) 12 U/L (5-34); Albumin 4.2 g/dL (3.4-4.8); Alkaline Phosphatase 75 U/L (40-110); Anion Gap 16 mmol/L (10-20); BUN (Urea Nitrogen) 19 mg/dL (8.4-25.7); Bilirubin, Total 1.3 mg/dL (0.2-1.2); Calc. Creatinine Clearance 0 mL/min (70-130); Carbon Dioxide 21 mmol/L (23-31); Chloride 108 mmol/L (98-107); Globulin 2.6 g/dL (2.4-3.5); Glucose 140 mg/dL (83-110); Iron 13 ug/dL (65-175); Iron Binding Capacity, Total 461 mcg/dL (261-462); Potassium 3.7 mmol/L (3.5-5.1); Protein, Total 6.8 g/dL (5.8-8.1); Sodium 141 mmol/L (136-145)
[2022-03-21 10:53] LABS: #Eosinphils 0.1 thou/uL (0.0-0.7); #Lymphocytes 1.3 thou/uL (1.20-3.40); #Monocytes 0.5 thou/uL (0.11-0.59); #Neutrophils 3.1 thou/uL (1.40-6.50); %Basophils 0.8 % (0.0-1.0); %Eosinophils 1.9 % (0.0-10.0); %Lymphocytes 25.6 % (21.0-51.0); %Monocytes 10.5 % (0.0-10.0); %Neutrophils 61.2 % (42.0-75.0); Burr Cells SLIGHT = 2-5 cells (100X) (0-1/hpf); Hypochromia MARKED = >30 cells (100X) (0-5/hpf); MDiff Complete? YES; Microcytosis MODERATE=15-30 cells (100X) (0-5/hpf); Ovalocytes SLIGHT = 2-5 cells (100X) (0-1/hpf); Platelet Morphology Comment Appears Adequate; Polychromasia SLIGHT = 2-3 cells (100X) (0-2/hpf); Schistocytes SLIGHT = 2-5 cells (100X) (0-1/hpf)
[2022-03-21] MEDS ORDERED: Ondansetron ODT 4 MG TAB PO PRN (12:48)
[2022-03-21] MEDS ORDERED: Acetaminophen 325 MG TAB PO PRN (12:48)
[2022-03-21 13:41] VITALS: BMI 25.0
[2022-03-21 16:48] VITALS: BP 169/77; TEMP 97.9
[2022-03-21 18:13] LABS: Hemoglobin 7.7 g/dL (14.0-18.0)
[2022-03-21 19:34] LABS: SARS-CoV-2 PCR by NAA Not Detected (NotDetected)
== END 2022-03-21 18:25 | disposition home or self-care (01) ==
LOC: ERS 09:44 → T4-A 12:00
PROVIDERS: ADMIT Internal Medicine; ATTEND Internal Medicine
DX: D50.9 Iron deficiency anemia, unspecified (principal); I25.10 Atherosclerotic heart disease of native coronary artery without angina pectoris; I25.2 Old myocardial infarction; E78.5 Hyperlipidemia, unspecified; I10 Essential (primary) hypertension; N40.0 Benign prostatic hyperplasia without lower urinary tract symptoms; Z87.891 Personal history of nicotine dependence; Z79.02 Long term (current) use of antithrombotics/antiplatelets; Z79.82 Long term (current) use of aspirin; Z79.899 Other long term (current) drug therapy; Z95.5 Presence of coronary angioplasty implant and graft; Z20.822 Contact with and (suspected) exposure to COVID-19
CPT/HCPCS: 36430; 80053 ×2; 80076; 82728; 83540; 83550; 85014; 85018; 85025 ×2; 85610; 85730; 86850; 86900; 86901; 86920; 99285; P9016; U0003; U0005; 36415; 85060; G0378

== ENCOUNTER 2022-05-14 09:48 | Outpatient (CLI) | payer MEDICARE ==
[~2022-05-14 09:48] MED LIST: Iopamidol-370 76% 500 ML 1 ML ONE
== END 2022-05-14 09:49 | disposition home or self-care (01) ==
LOC: BICCT 09:48
PROVIDERS: ATTEND Radiology Radiation Oncology
DX: C15.9 Malignant neoplasm of esophagus, unspecified (principal); M79.89 Other specified soft tissue disorders; K31.9 Disease of stomach and duodenum, unspecified; K22.9 Disease of esophagus, unspecified; R59.0 Localized enlarged lymph nodes
CPT/HCPCS: 71260; 74177; Q9967

== ENCOUNTER 2022-05-17 08:00 | Outpatient (CLI) | payer MEDICARE | END 2022-05-17 08:01 | disposition home or self-care (01) | LOC: PET 08:00 | PROVIDERS: ATTEND Internal Medicine Hematology & Oncology | DX: C15.5 Malignant neoplasm of lower third of esophagus (principal); D50.0 Iron deficiency anemia secondary to blood loss (chronic) | CPT/HCPCS: 78815; A9552 ==

== ENCOUNTER 2022-07-26 01:02 | Emergency (ER) | payer MEDICARE ==
[2022-07-26] MEDS ORDERED: Ketorolac Tromethamine 30 MG/ML VIAL ONE (02:21)
[2022-07-26] MEDS ORDERED: Morphine 4 MG/ML VIAL ONE (02:21)
[2022-07-26 02:25] LABS: Hemoglobin 14.1 g/dL (14.0-18.0); Mean Corpuscular HGB CONC 32.4 g/dL (32.0-36.0); Mean Corpuscular Hemoglobin 27.1 pg (27.0-31.0); Mean Corpuscular Volume 83.6 fL (78.0-98.0); White Blood Cell (WBC) Count 5.9 thou/uL (4.8-10.8)
[2022-07-26 02:33] LABS: ALT (SGPT) 24 U/L (8-55); AST (SGOT) 22 U/L (5-34); Alkaline Phosphatase 123 U/L (40-110); Anion Gap 15 mmol/L (10-20); BUN (Urea Nitrogen) 15 mg/dL (8.4-25.7); Calc. Creatinine Clearance 0 mL/min (70-130); Calcium 9.7 mg/dL (7.8-10.44); Carbon Dioxide 22 mmol/L (23-31); Chloride 108 mmol/L (98-107); Estimated GFR 64; Globulin 2.9 g/dL (2.4-3.5); Glucose 147 mg/dL (83-110); Potassium 3.9 mmol/L (3.5-5.1); Protein, Total 6.9 g/dL (5.8-8.1); Sodium 141 mmol/L (136-145)
[2022-07-26 02:49] LABS: Anisocytosis MODERATE=16-30 cells (100X) (0-5/hpf); Band 15 % (5-11); Elliptocytes SLIGHT = 2-5 cells (100X) (0-1/hpf); Eosinophils 7 % (0-10); Lymphocytes 41 % (21-51); MDiff Complete? YES; Mean Platelet Volume 6.2 fL (7.4-10.4); Monocytes 9 % (0-10); Neutrophil 26 % (42-75); Nucleated RBC 1 % (0); Platelet Count 95 thou/uL (130-400); Platelet Morphology Comment Appears Decreased
== END 2022-07-26 02:52 | disposition home or self-care (01) ==
LOC: ERS 01:02
DX: M54.50 Low back pain, unspecified (principal); I10 Essential (primary) hypertension; E78.5 Hyperlipidemia, unspecified; Z87.891 Personal history of nicotine dependence; Z79.82 Long term (current) use of aspirin; Z79.899 Other long term (current) drug therapy
CPT/HCPCS: 36415; 72100; 72170; 72220; 80053; 85025; 96374; 96375; J1885; J2270

== ENCOUNTER 2022-11-22 08:45 | Outpatient (CLI) | payer MEDICARE | END 2022-11-22 08:46 | disposition home or self-care (01) | LOC: PET 08:45 | PROVIDERS: ATTEND Internal Medicine Hematology & Oncology | DX: C15.5 Malignant neoplasm of lower third of esophagus (principal); D50.0 Iron deficiency anemia secondary to blood loss (chronic) | CPT/HCPCS: 78815; A9552 ==

== ENCOUNTER 2023-02-28 09:30 | Outpatient (CLI) | payer MEDICARE | END 2023-02-28 09:31 | disposition home or self-care (01) | LOC: PET 09:30 | PROVIDERS: ATTEND Internal Medicine Hematology & Oncology | DX: C15.5 Malignant neoplasm of lower third of esophagus (principal) | CPT/HCPCS: 78815; A9552 ==

== ENCOUNTER 2023-08-05 11:00 | Outpatient (CLI) | payer MEDICARE | END 2023-08-05 11:01 | disposition home or self-care (01) | LOC: PET 11:00 | PROVIDERS: ATTEND Internal Medicine Hematology & Oncology | DX: C15.5 Malignant neoplasm of lower third of esophagus (principal); J90 Pleural effusion, not elsewhere classified | CPT/HCPCS: 78815; A9552 ==

== ENCOUNTER 2023-08-31 04:37 | Inpatient (IN) | payer MEDICARE ==
[2023-08-31 06:34] LABS: Hematocrit 26.3 % (42.0-52.0); Hemoglobin 8.6 g/dL (14.0-18.0); Mean Corpuscular HGB CONC 32.7 g/dL (32.0-36.0); Mean Corpuscular Hemoglobin 30.6 pg (27.0-31.0); Mean Corpuscular Volume 93.6 fl (78.0-98.0); Mean Platelet Volume 10.9 fL (7.4-10.4); RBC Distribution Width 16.2 % (11.5-14.5); Red Blood Cell (RBC) Count 2.81 mill/uL (4.70-6.10); White Blood Cell (WBC) Count 0.5 10x3/uL (4.8-10.8)
[2023-08-31 06:35] LABS: Platelet Count 78 10x3/uL (130-400)
[2023-08-31 06:37] LABS: Delete Auto Diff?? YES; Manual Diff?? YES
[2023-08-31 06:53] LABS: ALT (SGPT) 20 U/L (8-55); AST (SGOT) 25 U/L (5-34); Albumin 2.8 g/dL (3.4-4.8); Alkaline Phosphatase 78 U/L (40-110); Anion Gap 13 mmol/L (10-20); BUN (Urea Nitrogen) 20 mg/dL (8.4-25.7); Bilirubin, Total 1.9 mg/dL (0.2-1.2); Calc. Creatinine Clearance 0 mL/min (70-130); Carbon Dioxide 18 mmol/L (23-31); Chloride 112 mmol/L (98-107); Estimated GFR 89; Globulin 2.2 g/dL (2.4-3.5); Glucose 86 mg/dL (83-110); Lipase Less than 4 U/L (8-78); Potassium 3.6 mmol/L (3.5-5.1); Sodium 139 mmol/L (136-145)
[2023-08-31 06:56] LABS: Troponin I 0.022 ng/mL (< 0.028)
[2023-08-31 07:54] LABS: Anisocytosis SLIGHT = 6-15 cells HPF (0-5); Band 6 % (5-11); Burr Cells SLIGHT = 2-5 cells HPF (0-1); CellaVision Operator ID LAB.NR; Elliptocytes SLIGHT = 2-5 cells HPF (0-1); Eosinophils 8 % (0-10); Large Platelets 41.7 % (0-5); Lymphocytes 54 % (21-51); Macrocytosis SLIGHT = 6-15 cells HPF (0-5); Monocytes 6 % (0-10); Neutrophil 25 % (42-75); Platelet Adequacy Comment Platelets Decreased; Schistocytes SLIGHT = 2-5 cells HPF (0-1); Total Cell Count 48; Vacuoles SLIGHT
[2023-08-31] MEDS ORDERED: Loperamide HCl 2 MG CAP PO PRN (08:31)
[2023-08-31] MEDS ORDERED: Ondansetron ODT 4 MG TAB PO PRN (08:31)
[2023-08-31] MEDS ORDERED: Ondansetron PF 4 MG/2 ML Vial IVP PRN (08:31)
[2023-08-31] MEDS ORDERED: Acetaminophen 325 MG TAB PO PRN (08:31)
[2023-08-31] MEDS ORDERED: Vancomycin 1 GM in Premix 1 BAG IVPB SCH (09:00)
[2023-08-31] MEDS ORDERED: Cefepime 2 GM VIAL ONE (09:05)
[2023-08-31] MEDS ORDERED: Sodium Chloride 0.9% 100 ML ONE (09:05)
[2023-08-31 09:17] LABS: Lactic Acid 1.1 mmol/L (0.5-2.2)
[2023-08-31] MEDS: Sodium Chloride 0.9% 1,000 ML IV SCH ×2 (09:54→21:32)
[2023-08-31] MEDS: Cefepime 2 GM in Sodium Chloride 0.9% 100 ML IVPB SCH ×2 (13:18→21:35)
[2023-08-31] MEDS ORDERED: Gabapentin 300 MG CAP PO SCH (21:00)
[2023-09-01 05:17] LABS: #Monocytes 0.1 thou/uL (0.11-0.59); #Neutrophils 0.2 thou/uL (1.40-6.50); %Basophils 2.2 % (0.0-1.0); %Eosinophils 4.4 % (0.0-10.0); %Lymphocytes 42.2 % (21.0-51.0); %Monocytes 13.3 % (0.0-10.0); %Neutrophils 37.9 % (42.0-75.0); Hematocrit 24.2 % (42.0-52.0); Hemoglobin 7.7 g/dL (14.0-18.0); Mean Corpuscular HGB CONC 31.8 g/dL (32.0-36.0); Mean Corpuscular Hemoglobin 30.6 pg (27.0-31.0); Mean Platelet Volume 12.2 fL (7.4-10.4); RBC Distribution Width 16.2 % (11.5-14.5); Red Blood Cell (RBC) Count 2.52 mill/uL (4.70-6.10); White Blood Cell (WBC) Count 0.5 10x3/uL (4.8-10.8)
[2023-09-01] MEDS: Cefepime 2 GM in Sodium Chloride 0.9% 100 ML IVPB SCH ×3 (05:17→22:03)
[2023-09-01 05:21] LABS: Platelet Count 86 10x3/uL (130-400)
[2023-09-01] MEDS: Sodium Chloride 0.9% 1,000 ML IV SCH (05:23)
[2023-09-01 05:52] LABS: ALT (SGPT) 17 U/L (8-55); AST (SGOT) 24 U/L (5-34); Albumin 2.7 g/dL (3.4-4.8); Alkaline Phosphatase 78 U/L (40-110); Anion Gap 9 mmol/L (10-20); BUN (Urea Nitrogen) 16 mg/dL (8.4-25.7); Bilirubin, Total 1.4 mg/dL (0.2-1.2); Calc. Creatinine Clearance 68 mL/min (70-130); Carbon Dioxide 20 mmol/L (23-31); Chloride 113 mmol/L (98-107); Estimated GFR 89; Globulin 2.4 g/dL (2.4-3.5); Glucose 78 mg/dL (83-110); Potassium 3.3 mmol/L (3.5-5.1); Protein, Total 5.1 g/dL (5.8-8.1); Sodium 139 mmol/L (136-145)
[2023-09-01] MEDS: Finasteride 5 MG TAB PO SCH (09:51)
[2023-09-01] MEDS: Atorvastatin Calcium 40 MG TAB PO SCH (09:52)
[2023-09-01] MEDS ORDERED: Pregabalin 75 MG CAP PO SCH ×2 (10:57→11:00)
[2023-09-01] MEDS ORDERED: traMADol HCl 50 MG TAB PO PRN (10:59)
[2023-09-01] MEDS ORDERED: Electrolyte Replacement Protocol 1 EACH FS SCH (11:00)
[2023-09-01] MEDS ORDERED: Saccharomyces boulardii 250 MG CAP PO SCH (11:15)
[2023-09-01] MEDS ORDERED: Electrolyte Replacement Protocol FS PRN (11:15)
[2023-09-01] MEDS ORDERED: Potassium Chloride 20 MEQ TAB PO SCH (11:15)
[2023-09-01] MEDS: Megestrol Acetate 400 MG/10 ML UDCUP PO SCH (11:44)
[2023-09-01 12:22] VITALS: BMI 20.5
[2023-09-01] MEDS: Potassium Chloride 20 MEQ in Lactated Ringer's 1,000 ML IV SCH (13:13)
[2023-09-01] MEDS: Potassium Chloride 20 MEQ in Premix 1 BAG IVPB SCH ×2 (14:30→18:38)
[2023-09-01] MEDS: Pregabalin 75 MG CAP PO SCH (22:02)
[2023-09-02] MEDS ORDERED: Fidaxomicin 200 MG TAB PO SCH (00:15)
[2023-09-02 00:21] LABS: Potassium 3.7 mmol/L (3.5-5.1)
[2023-09-02] MEDS: Potassium Chloride 20 MEQ in Lactated Ringer's 1,000 ML IV SCH ×2 (02:42→17:22)
[2023-09-02 06:20] LABS: Hematocrit 23.6 % (42.0-52.0); Hemoglobin 7.4 g/dL (14.0-18.0); Manual Diff?? YES; Mean Corpuscular HGB CONC 31.4 g/dL (32.0-36.0); Mean Corpuscular Hemoglobin 29.5 pg (27.0-31.0); Mean Platelet Volume 11.9 fL (7.4-10.4); RBC Distribution Width 16.1 % (11.5-14.5); Red Blood Cell (RBC) Count 2.51 mill/uL (4.70-6.10); White Blood Cell (WBC) Count 0.6 10x3/uL (4.8-10.8)
[2023-09-02 06:22] LABS: Platelet Count 77 10x3/uL (130-400)
[2023-09-02 06:23] LABS: Delete Auto Diff?? YES
[2023-09-02] MEDS: Cefepime 2 GM in Sodium Chloride 0.9% 100 ML IVPB SCH ×3 (06:27→21:41)
[2023-09-02 06:43] LABS: Anion Gap 10 mmol/L (10-20); BUN (Urea Nitrogen) 13 mg/dL (8.4-25.7); Calc. Creatinine Clearance 64 mL/min (70-130); Carbon Dioxide 18 mmol/L (23-31); Chloride 112 mmol/L (98-107); Estimated GFR 87; Glucose 79 mg/dL (83-110); Magnesium 1.7 mg/dL (1.6-2.6); Potassium 3.5 mmol/L (3.5-5.1); Sodium 136 mmol/L (136-145)
[2023-09-02 06:46] LABS: Anisocytosis MODERATE=16-30 cells HPF (0-5); Band 7 % (5-11); Burr Cells MODERATE= 6-15 cells HPF (0-1); CellaVision Operator ID lab.sh2; Eosinophils 3 % (0-10); Hypochromia SLIGHT = 6-15 cells HPF (0-5); Large Platelets 41.7 % (0-5); Lymphocytes 41 % (21-51); Macrocytosis SLIGHT = 6-15 cells HPF (0-5); Monocytes 19 % (0-10); Neutrophil 30 % (42-75); Nucleated RBC (Manual Ct) 1 % (0); Ovalocytes MODERATE= 6-15 cells HPF (0-1); Platelet Adequacy Comment Platelets Decreased; Poikilocytosis MODERATE=16-30 cells HPF (0-5); Polychromasia SLIGHT = 2-3 cells HPF (0-2); Smudge Cells 13.6 %; Total Cell Count 103; Toxic Granulation SLIGHT; Vacuoles SLIGHT
[2023-09-02] MEDS: Atorvastatin Calcium 40 MG TAB PO SCH (09:51)
[2023-09-02] MEDS: Pregabalin 75 MG CAP PO SCH ×2 (09:52→21:40)
[2023-09-02] MEDS: Finasteride 5 MG TAB PO SCH (09:52)
[2023-09-02] MEDS: Saccharomyces boulardii 250 MG CAP PO SCH (09:52)
[2023-09-02] MEDS: Fidaxomicin 200 MG TAB PO SCH ×2 (09:53→21:40)
[2023-09-02] MEDS: Megestrol Acetate 400 MG/10 ML UDCUP PO SCH (09:53)
[2023-09-02 13:13] LABS: Campy jejuni + coli by PCR Negative (Negative); STEC Shiga Toxin 1+2 Negative (Negative); Salmonella spp. by PCR Negative (Negative); Shigella spp + EIEC by PCR Negative (Negative)
[2023-09-02] MEDS ORDERED: Magnesium 2 GM/50 ML(in water) 2 GM in Premix 1 BAG IVPB SCH (17:00)
[2023-09-03 04:58] LABS: Hematocrit 23.4 % (42.0-52.0); Hemoglobin 7.5 g/dL (14.0-18.0); Mean Corpuscular HGB CONC 32.1 g/dL (32.0-36.0); Mean Corpuscular Hemoglobin 29.8 pg (27.0-31.0); Mean Corpuscular Volume 92.9 fl (78.0-98.0); Mean Platelet Volume 12.6 fL (7.4-10.4); RBC Distribution Width 16.4 % (11.5-14.5); Red Blood Cell (RBC) Count 2.52 mill/uL (4.70-6.10); White Blood Cell (WBC) Count 2.1 10x3/uL (4.8-10.8)
[2023-09-03 05:06] LABS: Delete Auto Diff?? YES; Platelet Count 85 10x3/uL (130-400)
[2023-09-03 05:20] LABS: Calcium 7.9 mg/dL (7.8-10.44); Chloride 110 mmol/L (98-107); Glucose 76 mg/dL (83-110); Potassium 3.7 mmol/L (3.5-5.1); Sodium 134 mmol/L (136-145)
[2023-09-03 05:22] LABS: Anion Gap 12 mmol/L (10-20); Carbon Dioxide 16 mmol/L (23-31)
[2023-09-03 05:23] LABS: Calc. Creatinine Clearance 44 mL/min (70-130); Estimated GFR 59
[2023-09-03 05:24] LABS: BUN (Urea Nitrogen) 17 mg/dL (8.4-25.7)
[2023-09-03 05:25] LABS: Magnesium 1.9 mg/dL (1.6-2.6)
[2023-09-03] MEDS ORDERED: Sodium Chloride 0.9% 500 ML IV SCH (06:00)
[2023-09-03] MEDS: Cefepime 2 GM in Sodium Chloride 0.9% 100 ML IVPB SCH (06:35)
[2023-09-03] MEDS: Potassium Chloride 20 MEQ in Lactated Ringer's 1,000 ML IV SCH ×2 (06:43→17:29)
[2023-09-03] MEDS ORDERED: Magnesium 2 GM/50 ML(in water) 2 GM in Premix 1 BAG IVPB SCH (08:00)
[2023-09-03] MEDS: Megestrol Acetate 800 MG/20 ML UDCUP PO SCH (08:59)
[2023-09-03] MEDS: Saccharomyces boulardii 250 MG CAP PO SCH (09:01)
[2023-09-03] MEDS: Finasteride 5 MG TAB PO SCH (09:01)
[2023-09-03] MEDS: Atorvastatin Calcium 40 MG TAB PO SCH (09:01)
[2023-09-03] MEDS: Fidaxomicin 200 MG TAB PO SCH ×2 (09:05→21:20)
[2023-09-03] MEDS ORDERED: Piperacillin/Tazobactam 3.375 GM in Sodium Chloride 0.9% 100 ML IVPB SCH ×2 (18:00→21:00)
[2023-09-03] MEDS ORDERED: Cefepime 2 GM in Sodium Chloride 0.9% 100 ML IVPB SCH (18:00)
[2023-09-04] MEDS: Piperacillin/Tazobactam 3.375 GM in Sodium Chloride 0.9% 100 ML IVPB SCH ×3 (03:44→17:26)
[2023-09-04] MEDS: Potassium Chloride 20 MEQ in Lactated Ringer's 1,000 ML IV SCH (03:44)
[2023-09-04 05:06] LABS: Hematocrit 23.3 % (42.0-52.0); Hemoglobin 7.5 g/dL (14.0-18.0); Mean Corpuscular HGB CONC 32.2 g/dL (32.0-36.0); Mean Corpuscular Hemoglobin 29.8 pg (27.0-31.0); Mean Corpuscular Volume 92.5 fl (78.0-98.0); Mean Platelet Volume 11.9 fL (7.4-10.4); Platelet Count 94 10x3/uL (130-400); RBC Distribution Width 16.7 % (11.5-14.5); Red Blood Cell (RBC) Count 2.52 mill/uL (4.70-6.10); White Blood Cell (WBC) Count 10.1 10x3/uL (4.8-10.8)
[2023-09-04 05:07] LABS: Delete Auto Diff?? YES; Manual Diff?? YES
[2023-09-04 05:24] LABS: Anion Gap 9 mmol/L (10-20); BUN (Urea Nitrogen) 23 mg/dL (8.4-25.7); Calc. Creatinine Clearance 36 mL/min (70-130); Calcium 8.1 mg/dL (7.8-10.44); Carbon Dioxide 18 mmol/L (23-31); Chloride 109 mmol/L (98-107); Estimated GFR 46; Glucose 112 mg/dL (83-110); Potassium 3.8 mmol/L (3.5-5.1); Sodium 132 mmol/L (136-145)
[2023-09-04 05:31] LABS: Anisocytosis MODERATE=16-30 cells HPF (0-5); Band 7 % (5-11); Burr Cells MODERATE= 6-15 cells HPF (0-1); CellaVision Operator ID lab.sh2; Large Platelets 7.9 % (0-5); Lymphocytes 2 % (21-51); Macrocytosis SLIGHT = 6-15 cells HPF (0-5); Monocytes 5 % (0-10); Neutrophil 86 % (42-75); Nucleated RBC (Manual Ct) 1 % (0); Ovalocytes MODERATE= 6-15 cells HPF (0-1); Platelet Adequacy Comment Platelets Decreased; Poikilocytosis MODERATE=16-30 cells HPF (0-5); Polychromasia SLIGHT = 2-3 cells HPF (0-2); Smudge Cells 6.9 %; Total Cell Count 101; Toxic Granulation SLIGHT
[2023-09-04] MEDS: Finasteride 5 MG TAB PO SCH (09:48)
[2023-09-04] MEDS: Saccharomyces boulardii 250 MG CAP PO SCH (09:48)
[2023-09-04] MEDS: Atorvastatin Calcium 40 MG TAB PO SCH (09:48)
[2023-09-04] MEDS: Fidaxomicin 200 MG TAB PO SCH ×2 (09:48→21:00)
[2023-09-04] MEDS: Megestrol Acetate 800 MG/20 ML UDCUP PO SCH (09:48)
[2023-09-04] MEDS ORDERED: Acetaminophen 650 MG Suppository PR PRN (23:55)
[2023-09-05 00:46] LABS: Hematocrit 25.1 % (42.0-52.0); Mean Corpuscular HGB CONC 31.9 g/dL (32.0-36.0); Mean Corpuscular Hemoglobin 30.8 pg (27.0-31.0); Mean Platelet Volume 12.8 fL (7.4-10.4); Platelet Count 102 10x3/uL (130-400); RBC Distribution Width 17.2 % (11.5-14.5); White Blood Cell (WBC) Count 22.6 10x3/uL (4.8-10.8)
[2023-09-05 00:53] LABS: Delete Auto Diff?? YES; Manual Diff?? YES
[2023-09-05 00:54] LABS: Mean Corpuscular Volume 96.5 fl (78.0-98.0)
[2023-09-05 01:01] LABS: Lactic Acid 3.3 mmol/L (0.5-2.2)
[2023-09-05 01:06] LABS: ALT (SGPT) 17 U/L (8-55); AST (SGOT) 26 U/L (5-34); Albumin 2.3 g/dL (3.4-4.8); Alkaline Phosphatase 147 U/L (40-110); Anion Gap 13 mmol/L (10-20); BUN (Urea Nitrogen) 25 mg/dL (8.4-25.7); Bilirubin, Total 0.6 mg/dL (0.2-1.2); Calc. Creatinine Clearance 28 mL/min (70-130); Calcium 8.1 mg/dL (7.8-10.44); Carbon Dioxide 13 mmol/L (23-31); Chloride 110 mmol/L (98-107); Estimated GFR 35; Globulin 2.5 g/dL (2.4-3.5); Glucose 147 mg/dL (83-110); Magnesium 2.3 mg/dL (1.6-2.6); Potassium 3.8 mmol/L (3.5-5.1); Protein, Total 4.8 g/dL (5.8-8.1); Sodium 132 mmol/L (136-145)
[2023-09-05 01:18] LABS: Actual Bicarbonate (HCO3v) 16.1 mEq/L (22-28); Base Excess -8.2 mEq/L (-2.0 to +3.0); Calcium, Ionized (venous) 1.11 mmol/L (1.16-1.32); Chloride (VBG) 108 mmol/L (98-106); Hematocrit-VBG 27 % (42.0-52.0); Hemoglobin (Hb) 9.2 g/dL (12.6-17.4); Potassium (VBG) 3.76 mmol/L (3.70-5.30); Sodium 131 mmol/L (133-146); pH (venous) 7.364 (7.32-7.43)
[2023-09-05 01:23] LABS: Anisocytosis SLIGHT = 6-15 cells HPF (0-5); Band 6 % (5-11); Burr Cells SLIGHT = 2-5 cells HPF (0-1); CellaVision Operator ID lab.abc; Large Platelets 2.9 % (0-5); Lymphocytes 1 % (21-51); Monocytes 3 % (0-10); Neutrophil 90 % (42-75); Platelet Adequacy Comment Platelets Decreased; Poikilocytosis SLIGHT = 6-15 cells HPF (0-5); Polychromasia SLIGHT = 2-3 cells HPF (0-2); Smudge Cells 4.9 %; Total Cell Count 103
[2023-09-05] MEDS: Piperacillin/Tazobactam 3.375 GM in Sodium Chloride 0.9% 100 ML IVPB SCH ×3 (01:25→18:13)
[2023-09-05] MEDS: Sodium Bicarbonate 150 MEQ in Dextrose 5% in Water 1,000 ML IV SCH ×2 (02:24→18:18)
[2023-09-05 05:32] LABS: Lactic Acid 3.2 mmol/L (0.5-2.2)
[2023-09-05] MEDS ORDERED: Enoxaparin 120 MG/0.8 ML SYRINGE SC SCH (09:00)
[2023-09-05] MEDS: Fidaxomicin 200 MG TAB PO SCH ×2 (09:02→22:00)
[2023-09-05] MEDS: Atorvastatin Calcium 40 MG TAB PO SCH (09:02)
[2023-09-05] MEDS: Megestrol Acetate 800 MG/20 ML UDCUP PO SCH (09:02)
[2023-09-05] MEDS: Saccharomyces boulardii 250 MG CAP PO SCH (09:02)
[2023-09-05] MEDS: Finasteride 5 MG TAB PO SCH (09:02)
[2023-09-05] MEDS: Albumin 25% 25 GM/100 ML BOT IVPB SCH ×3 (10:19→22:37)
[2023-09-05] MEDS: Pantoprazole 40 MG VIAL IVP SCH (22:00)
[2023-09-06] MEDS: Sodium Bicarbonate 150 MEQ in Dextrose 5% in Water 1,000 ML IV SCH ×3 (01:00→14:14)
[2023-09-06] MEDS: Piperacillin/Tazobactam 3.375 GM in Sodium Chloride 0.9% 100 ML IVPB SCH ×2 (02:53→11:00)
[2023-09-06] MEDS: Albumin 25% 25 GM/100 ML BOT IVPB SCH (05:00)
[2023-09-06 06:04] LABS: Hematocrit 19.1 % (42.0-52.0); Hemoglobin 6.4 g/dL (14.0-18.0); Mean Corpuscular HGB CONC 33.5 g/dL (32.0-36.0); Mean Corpuscular Hemoglobin 29.9 pg (27.0-31.0); Mean Corpuscular Volume 89.3 fl (78.0-98.0); Mean Platelet Volume 13.1 fL (7.4-10.4); Platelet Count 90 10x3/uL (130-400); RBC Distribution Width 17.2 % (11.5-14.5); Red Blood Cell (RBC) Count 2.14 mill/uL (4.70-6.10)
[2023-09-06 06:19] LABS: Delete Auto Diff?? YES; Manual Diff?? YES
[2023-09-06 06:25] LABS: Anion Gap 10 mmol/L (10-20); BUN (Urea Nitrogen) 24 mg/dL (8.4-25.7); Calc. Creatinine Clearance 27 mL/min (70-130); Calcium 8.1 mg/dL (7.8-10.44); Carbon Dioxide 24 mmol/L (23-31); Chloride 106 mmol/L (98-107); Estimated GFR 33; Glucose 114 mg/dL (83-110); Potassium 2.8 mmol/L (3.5-5.1); Sodium 137 mmol/L (136-145)
[2023-09-06 07:15] LABS: Anisocytosis MODERATE=16-30 cells HPF (0-5); Band 8 % (5-11); Burr Cells MODERATE= 6-15 cells HPF (0-1); CellaVision Operator ID LAB.CMB; Eosinophils 1 % (0-10); Large Platelets 6.7 % (0-5); Lymphocytes 7 % (21-51); Macrocytosis MODERATE=16-30 cells HPF (0-5); Monocytes 1 % (0-10); Neutrophil 82 % (42-75); Ovalocytes SLIGHT = 2-5 cells HPF (0-1); Plasma Cells 1 % (0-0); Platelet Adequacy Comment Platelets Decreased; Polychromasia SLIGHT = 2-3 cells HPF (0-2); Total Cell Count 104
[2023-09-06] MEDS ORDERED: Potassium Chloride 20 MEQ in Premix 1 BAG IVPB SCH (08:00)
[2023-09-06 08:06] VITALS: BP 136/81; TEMP 98.6
[2023-09-06] MEDS: Potassium Chloride 20 MEQ in Premix 1 BAG IVPB SCH ×4 (08:35→15:44)
[2023-09-06] MEDS ORDERED: Lorazepam 2 MG/ML VIAL SLOW IVP PRN (09:11)
[2023-09-06] MEDS: Atorvastatin Calcium 40 MG TAB PO SCH (10:40)
[2023-09-06] MEDS: Finasteride 5 MG TAB PO SCH (10:41)
[2023-09-06] MEDS: Fidaxomicin 200 MG TAB PO SCH (10:41)
[2023-09-06] MEDS: Megestrol Acetate 800 MG/20 ML UDCUP PO SCH (10:41)
[2023-09-06] MEDS: Saccharomyces boulardii 250 MG CAP PO SCH (10:42)
[2023-09-06] MEDS: Morphine 2 MG/ML VIAL SLOW IVP SCH ×7 (10:50→16:59)
[2023-09-06] MEDS: Pantoprazole 40 MG VIAL IVP SCH (11:00)
== END 2023-09-06 17:15 | disposition hospice, home (50) | DRG 871 ==
LOC: ERS 04:37 → ERHOLD 08:55 → MSONC 08:55 → SURG B 12:36 → MSONC 09-01 08:09 → OBSVTOIN 09-01 10:54
PROVIDERS: ADMIT Hospitalist; ATTEND Family Medicine
PROC: 3E03329 Introduction of Other Anti-infective into Peripheral Vein, Percutaneous Approach (ICD-10-PCS; 2023-08-31)
PROC: 30233J1 Transfusion of Nonautologous Serum Albumin into Peripheral Vein, Percutaneous Approach (ICD-10-PCS; principal; 2023-09-05)
DX: A41.52 Sepsis due to Pseudomonas (principal); G92.8 Other toxic encephalopathy; J69.0 Pneumonitis due to inhalation of food and vomit; J18.9 Pneumonia, unspecified organism; C16.0 Malignant neoplasm of cardia; D61.818 Other pancytopenia; D84.9 Immunodeficiency, unspecified; A04.72 Enterocolitis due to Clostridium difficile, not specified as recurrent; K92.1 Melena; N17.9 Acute kidney failure, unspecified; I82.622 Acute embolism and thrombosis of deep veins of left upper extremity; E87.20 Acidosis, unspecified; D84.821 Immunodeficiency due to drugs; R65.20 Severe sepsis without septic shock; Z51.5 Encounter for palliative care; Z66 Do not resuscitate; I25.10 Atherosclerotic heart disease of native coronary artery without angina pectoris; I10 Essential (primary) hypertension; E78.5 Hyperlipidemia, unspecified; E86.0 Dehydration; T45.1X5A Adverse effect of antineoplastic and immunosuppressive drugs, initial encounter; E87.6 Hypokalemia; G62.9 Polyneuropathy, unspecified; D70.9 Neutropenia, unspecified; R53.81 Other malaise; Z95.5 Presence of coronary angioplasty implant and graft; Z79.899 Other long term (current) drug therapy; Z98.890 Other specified postprocedural states; Z87.891 Personal history of nicotine dependence
CPT/HCPCS: 36415; 36416; 70450; 71045; 80048; 80053; 82805; 83605; 83690; 83735; 84443; 84484; 85025; 87040; 87077; 87149; 87186; 87324; 87449; 87505; 93005; 93010; 96361; 96365; 96366; 96372; 96375; 96376; C9113; G0378; J0692; J1447; J1642; J1650; J2272; J2543; J3370-JW; J3475; J3480; J3490; J7030; J7050; J7070; J7120; P9047